=== PATIENT | male | born 1975 | race Two or more races ===

== ENCOUNTER 2022-09-26 05:00 | Day surgery (SDC) | payer OTHER ==
[~2022-09-26] VITALS: Ht 167.6 cm; Wt 117.9 kg
[~2022-09-26 05:00] MED LIST: ASPIRIN PO; AVALIDE 300-121 EACH PO; GLUMETZA500 MG PO; TOPROL XL50 M1 PO
== END 2022-09-26 12:25 | disposition home or self-care (01) ==
LOC: CIR.AMB 05:00
PROVIDERS: ATTEND Surgery Surgery of the Hand
DX: M65.841 Other synovitis and tenosynovitis, right hand (principal); I10 Essential (primary) hypertension; E11.9 Type 2 diabetes mellitus without complications; Z79.84 Long term (current) use of oral hypoglycemic drugs; Z91.013 Allergy to seafood

== ENCOUNTER 2023-10-02 05:32 | Day surgery (SDC) | payer OTHER | END 2023-10-02 13:25 | disposition home or self-care (01) | LOC: CIR.AMB 05:32 | PROVIDERS: ATTEND Surgery Surgery of the Hand | DX: M65.842 Other synovitis and tenosynovitis, left hand (principal); Z91.013 Allergy to seafood ==